=== PATIENT | female | born 1970 | race Caucasian/White ===

== ENCOUNTER 2017-09-09 14:09 | Emergency (ER) | payer MEDICAID ==
[~2017-09-09] VITALS: Ht 162.6 cm; Wt 68.0 kg
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
[2017-09-09] MEDS ORDERED: IBUPROFEN 600 MG TABLET PO ONE ×2 (15:00)
--- NOTE | 2017-09-09 15:19 | NUR ---
CALLED WILBERTO TO EXPEDITE READ OF X-RAY
--- NOTE | 2017-09-09 15:38 | NUR ---
Patient discharged to home in stable condition. Written and verbal after care instructions given. Patient verbalizes understanding of instruction.
[2017-09-09 15:39] VITALS: BP 130/80
== END 2017-09-09 15:39 | disposition home or self-care (01) ==
LOC: ER 14:11
DX: M54.2 Cervicalgia (principal); M79.602 Pain in left arm; M54.5 Low back pain; V73.5XXA Driver of bus injured in collision with car, pick-up truck or van in traffic accident, initial encounter; Y93.89 Activity, other specified; Y92.413 State road as the place of occurrence of the external cause; Y99.8 Other external cause status
CPT/HCPCS: 72040-TC; A4606; Z7610